=== PATIENT | female | born 1945 | race Caucasian/White ===

== ENCOUNTER → 2017-01-26 | Outpatient (CLI) | payer OTHER ==
[~2017-01-26] MED LIST: ACTOS; ACTOS PO; ALBUTEROL0.83 MG/ML IH; ALBUTEROL17 GM INH; ALDACTAZIDE 25/1 TAB; AMARYL PO; ASPIRIN PO; ASPIRIN81 M1 PO; ASPIRIN81 M2 PO; AVANDIA; BAYER ASPIRIN325 M1 PO; CARDIZEM CD180 M1 PO; CARDIZEM SR; CARTIA PO; COUMADIN5 MG PO; COZAAR; COZAAR100 MG PO; DILTIAZEM 24HR180 M1 PO; DOXYCYCLINE PO; FERROUS SULFATE PO; FLEXERIL10 MG PO; FLONASE 0.05% N16 G1; GLUCOPHAGE500 MG PO; GLUCOTROL PO; HCTZ PO; HYDRALAZINE/HCTZ PO; HYDROCHLOROTHIA25 MG PO; HYDROCODONE-A1 UDTA3 PO; IBUPROFEN800 MG PO; KLOR-CON PO; LEVAQUIN PO; LISINOPRIL PO; LORTAB 5/500 TA1 TA1 PO; METFORMIN PO; METOPROLOL SUCC25 MG PO; METOPROLOL SUCC50 MG PO; METOPROLOL TAR25 MG PO; MICRO-K PO; MICRO-K10 MEQ PO; NORVASC PO; OMEPRAZOLE20 M2 PO; POTASSIUM CHLO10 ME1 PO; PREDNISONE PO; PREDNISONE10 MG PO; PRILOSEC PO; PRILOSEC20 M1 PO; PRINIVIL40 MG PO; PROAIR HFA8.5 GM; SIMVASTATIN40 MG PO; THEO-24200 MG PO; THEO-DUR200 MG PO; THEOPHYLLIN PO; TOPROL XL50 MG PO; VICODIN 5/500 T1 TAB PO; VIT B-12 PO; VITAMIN D50000 UNIT PO; WALGREENS PHARMACY; ZOCOR
--- NOTE | ~2017-01-26 | MY29 ---
[facility] A Service of [facility] RADIOLOGY TEXT RESULTS PATIENT: TRISH HONG LOCATION: [facility] : 49 UNIT #: [id number] AGE: [address]: Lola Mi MD SEX: F ORDER DR: [id number] [facility]. [place], [place] [address] [id number] O MR#: [id number] Acc #: [id number] NAME: TRISH HONG : 1945 SEX: F STUDY DATE/TIME: 01/26/2017 10:19 UNIT: [facility] ROOM: STUDY DESCRIPTION: MY RAVEN SCREENING W/ CAD BILAT Attending Physician: Lola Mi M.D. Referring Physician: Lola Mi M.D. Ordering Physician: Lola Mi M.D. Primary Care Physician: Lola Mi M.D. MEDICAL IMAGING REPORT This report is preliminary unless electronic signature is present EXAM Bilateral digital screening mammogram with CAD DATE 01/26/2017 HISTORY Family history of breast cancer (relative not designated on the history sheet). No personal history of breast cancer or current complaints. COMPARISON Bilateral digital diagnostic mammogram 01/25/2016, 01/22/2015 FINDINGS CC and MLO views were obtained of each breast utilizing digital technique and reviewed with an FDA-approved CAD device. The breast parenchyma is predominantly fat replaced. 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 No new or suspicious nodule is seen. No architectural distortion or suspicious clustered microcalcifications. No abnormal skin thickening or nipple retraction. IMPRESSION Routine bilateral screening mammogram is recommended in year. Patient's over the age of 40 are entered into a reminder system with target due date for the next mammogram. A result letter will be sent to the patient. [facility] A Service of [facility] RADIOLOGY TEXT RESULTS PATIENT: TRISH HONG LOCATION: [facility] : 49 UNIT #: [id number] AGE: [address]: Lola Mi MD SEX: F ORDER DR: BIRADS: 2 Benign findings. Dictated by... Fabiola Tello M.D. THIS IS AN ELECTRONICALLY VERIFIED REPORT Fabiola Tello M.D. at 01/27/2017 8:32 AM [facility]/claudio TD: 01/26/2017 14:25 JOB #: [id number] MEDICAL IMAGING REPORT Page 1 of 1 COPY
== END | disposition home or self-care (01) ==
LOC: CWCC 09:56
DX: Z12.31 Encounter for screening mammogram for malignant neoplasm of breast (principal); Z80.3 Family history of malignant neoplasm of breast
CPT/HCPCS: G0202